=== PATIENT | male | born 1990 | race Caucasian/White ===

== ENCOUNTER → 2021-05-29 08:57 | Outpatient (CLI) | payer BC, SELFPAY ==
--- NOTE | ~2021-05-29 | MR_ITS ---
EXAMINATION: MR knee LT wo con DATE: 05/29/2021 09:39 INDICATION: Acute onset left knee pain TECHNIQUE: Magnetic resonance imaging (MRI) of the left knee was performed without intravenous contra st. Sequences included coronal PD-weighted FSE, coronal PD-weighted FS FSE, sagittal T2-weighted FSE , sagittal PD-weighted FS FSE and axial PD weighted fat saturated FSE. COMPARISON: None. FINDINGS: Medial compartment: Complex tear at the body of the medial meniscus with 6 mm separation of the margins of a full-thickne ss radial tear. Longitudinal vertical tear plane extending to the inferior articular surface in the p eripheral third of the posterior body extending at least 1 cm posterior to the radial tear plane. The re is diffuse partial thickness cartilage loss with smooth chondral surface throughout the weightbear ing medial femoral condyle and along the medial half of the medial tibial plateau. There is mild suba rticular edema along the medial aspect of the medial tibial plateau underlying the region of the meni scal tear defect. There is some low signal intensity subcortical eburnation along the anterior weight bearing medial femoral condyle. Lateral compartment: Lateral meniscus is normal. Mild partial-thickness cartilage loss with smooth chondral surface along the lateral side of the posterior weightbearing medial femoral condyle. Patellofemoral compartment: Partial-thickness chondral fissuring which appears to involve at least 50% the cartilage thickness at the central aspect of the patellar apical ridge. Trochlear cartilage is normal. Ligaments and tendons: Anterior and posterior cruciate ligaments are normal. Instantly noted is a normal variant infrapatell ar plica extending to the anterior roof of the intercondylar notch. Mild increased signal in the prox imal medial collateral ligament consistent with age-indeterminate moderate grade sprain with minimal surrounding edema which could be seen with either acute injury or coincidental reactive edema related to the adjacent torn meniscus. The extensor mechanism is normal. The visualized medial and lateral h amstring tendons as well as the iliotibial band are normal. Fluid: Moderate-sized knee joint effusion with mild synovitis at the suprapatellar pouch. There is also a me dial plical band which does not cross the medial rim of the medial trochlea. 3 mm likely loose body i n the posterolateral recess of the medial compartment located along the posterior margin of the tibia l side of the posterior cruciate ligament. Osseous/other: Low signal intensity bone island at the lateral metaphyseal region of the distal femur. No fracture o r pathologic marrow replacing process. IMPRESSION: 1. Complex tear of the body of the medial meniscus including a full-thickness radial tear plane. 2. 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 3. Age-indeterminate moderate grade sprain of the proximal medial collateral ligament. Reviewed, dictated and finalized at location B. IMPRESSION: 1. Complex tear of the body of the medial meniscus including a full-thickness r adial tear plane. 2. Mild osteoarthritis with moderate grade chondromalacia at the medial and pat ellofemoral compartments. 3. Age-indeterminate moderate grade sprain of the proximal medial collateral li gament.
== END ==
PROVIDERS: PCP Family Medicine Sports Medicine; Visit Provider Family Medicine Sports Medicine
DX: M17.12 Unilateral primary osteoarthritis, left knee (principal); S83.242A Other tear of medial meniscus, current injury, left knee, initial encounter; S83.412A Sprain of medial collateral ligament of left knee, initial encounter; X58.XXXA Exposure to other specified factors, initial encounter
CPT/HCPCS: 73721